=== PATIENT | male | born 1960 | race Caucasian/White ===

== ENCOUNTER 2016-08-14 07:19 | Emergency (ER) | payer MEDICAID ==
[~2016-08-14] VITALS: Ht 170.2 cm; Wt 64.0 kg
[~2016-08-14 07:19] MED LIST: LORTAB5 OR; NAPROSYN375 MG PO; NO MEDICATIONS; NORVASC5 MG OR; PENICILLN VK500 M1 OR; ULTRAM50 M1 PO; VASOTEC5 MG PO
[2016-08-14] MEDS ORDERED: NAPROSYN500 MG PO (08:37)
[2016-08-14] MEDS ORDERED: FLEXERIL PO (08:37)
[2016-08-14 08:44] VITALS: BP 125/96
== END 2016-08-14 09:08 | disposition home or self-care (01) | DRG 563 ==
LOC: ED 07:19
DX: S39.012A Strain of muscle, fascia and tendon of lower back, initial encounter (principal); X50.0XXA Overexertion from strenuous movement or load, initial encounter; Y93.H9 Activity, other involving exterior property and land maintenance, building and construction; Y92.007 Garden or yard of unspecified non-institutional (private) residence as the place of occurrence of the external cause

== ENCOUNTER 2018-08-07 08:09 | Emergency (ER) | payer SELFPAY ==
[~2018-08-07] VITALS: Ht 170.2 cm; Wt 50.0 kg
[~2018-08-07 08:09] MED LIST changes: +FLEXERIL PO; +NAPROSYN500 MG PO
[2018-08-07] MEDS ORDERED: MOTRIN400 MG PO (09:21)
[2018-08-07] MEDS ORDERED: VOLTAREN1%GEL TOP (09:21)
[2018-08-07 10:28] VITALS: BP 113/65
== END 2018-08-07 10:28 | disposition home or self-care (01) | DRG 563 ==
LOC: ED 08:09
DX: S66.911A Strain of unspecified muscle, fascia and tendon at wrist and hand level, right hand, initial encounter (principal); I10 Essential (primary) hypertension; F17.200 Nicotine dependence, unspecified, uncomplicated; X58.XXXA Exposure to other specified factors, initial encounter

== ENCOUNTER 2021-02-07 12:01 | Observation (INO) | payer SELFPAY ==
[~2021-02-07] VITALS: Ht 170.2 cm; Wt 54.0 kg
[~2021-02-07 12:01] MED LIST changes: +MOTRIN400 MG PO; +VOLTAREN1%GEL TOP
--- NOTE | 2021-02-07 12:01 | NUR ---
PATIENT TO ROOM 11 VIA WHEELCHAIR BEDSIDE TRIAGE COMPLETED
--- NOTE | 2021-02-07 12:15 | NUR ---
STROKE ALERT CALLED, TO CT SCAN VIA STRETCHER.
[2021-02-07 12:32] LABS: GFR > 60 ML/MIN (>=60 (CALC)); GFR FOR AFR.AMER. > 60 ML/MIN (>=60 (CALC))
[2021-02-07 12:34] LABS: HEMOGLOBIN 13.8 g/dl (14.0-18.0); IMMATURE GRANULOCYTES 0.4 % (0.0-5.0); MEAN CELL VOLUME 93.1 fL CALC (80.0-100.0); MEAN CORPUSCULAR HGB 32.7 pG CALC (26.0-32.0); MEAN CORPUSCULAR HGB CONC 35.1 g/dL CAL (32.0-36.0); NEUT# 2.19 thou/uL (1.82-7.42); RED BLOOD COUNT 4.22 mill/uL (4.70-6.10); RED CELL DISTRI WIDTH 12.3 % (11.5-15.5)
[2021-02-07 12:37] LABS: HEMATOCRIT 39.3 % (39.0-50.0)
[2021-02-07 12:45] LABS: ALBUMIN 4.2 g/dL (3.2-5.0); ALKALINE PHOSPHATASE 72 u/l (38-126); ANION GAP 14 (6-22 (CALC)); BILIRUBIN, TOTAL 0.6 mg/dL (0.0-1.4); BUN 9 mg/dL (9-20); BUN/CREATININE RATIO 15 (12-20 (CALC)); CARBON DIOXIDE 20 mmol/l (22-30); CHLORIDE 100 mmol/l (95-108); CREATININE 0.6 mg/dL (0.7-1.3); GFR > 60 ML/MIN (>=60 (CALC)); GFR FOR AFR.AMER. > 60 ML/MIN (>=60 (CALC)); LIPASE 202 u/l (23-300); MAGNESIUM 1.5 mg/dL (1.6-2.3); SGOT/AST 39 u/l (17-59); SODIUM 130 mmol/l (137-146)
[2021-02-07 12:46] LABS: ACT PARTIAL THROMBO TIME 25.3 SECONDS (20.0-32.5); PROTHROMBIN TIME 10.4 SECONDS (9.0-12.5)
--- NOTE | 2021-02-07 13:53 | NUR ---
DR NELSON AT BEDSIDE TO DISCUSS RESULTS AND POC.
--- NOTE | 2021-02-07 14:42 | NUR ---
PT RETURNED FROM RADIOLOGY VIA WHEELCHAIR. ASSISTED TO STRETCHER WITH STAND BY ASSIST.
--- NOTE | 2021-02-07 14:55 | NUR ---
OT AT BEDSIDE
--- NOTE | 2021-02-07 15:07 | NUR ---
REPORT CALLED TO AYSHA DAILEY
--- NOTE | 2021-02-07 15:48 | NUR ---
TO MED SURG VIA STRETCHER, TELE MONITOR IN PLACE.
--- NOTE | 2021-02-07 15:55 | NUR ---
PT ARRIVED TO FLOOR VIA NORBERTO DAILEY. PT ORIENTED TO ROOM. ASSESSMENT PERFORMED, NO COMPLAINTS AT THIS TIME. WILL CONTINUE TO MONITOR.
[2021-02-07 16:13] VITALS: BP 141/85
[2021-02-07] MEDS ORDERED: ZESTRIL10 M1 PO (16:23)
[2021-02-07] MEDS ORDERED: LOPID600 MG PO (16:23)
[2021-02-07 19:00] VITALS: BP 103/61
--- NOTE | 2021-02-07 20:00 | NUR ---
PATIENT RESTING IN BED AT THIS TIME WATCHING TV. AWAKE ALERT AND ORIENTEDX3. PATIENT WITH NO COMPLAINTS A THIS TIME. DENIES ANY NUMBNESS OR TINGLING AT THIS TIME. NEURO CHECK IS WNL-HAND GRASPS ARE EQUAL. ZACK IS WNL. TELE MONITOR IN PLACE-LAST READING WAS SR-68. SALINE LOCK TO LEFT FOREARM IN PLACE WITH GOOD BLOOD RETURN. IVF NS HUNG ORDERED AND INFUSING AT 100CC/HR. LUNGS ARE CLEAR. ABD IS SOFT WITH ACTIVE BS. NO PERIPHERAL EDEMA NOTED. PULSES ARE PALPABLE. DENIES ANY DIFFICULTY WITH URINATION. SAFETY PRECAUTIONS REINFORCED. CALL LIGHT IN REACH. WILL CONT TO MONITOR.
[2021-02-08] VITALS: BP 120/68
--- NOTE | 2021-02-08 01:26 | NUR ---
PATIENT RESTING IN BED AT THIS TIME WITH EYES CLOSED. RESPS ARE EVEN AND UNLABORED. TELE MONITOR IN PLACE-LAST READING WAS SR-62. IVF NS PATENT AND INFUSING VIA LEFT FOREARM SITE AT 100CC/HR. CALL LIGHT IN REACH. WILL CONT TO MONITOR.
[2021-02-08 04:00] VITALS: BP 118/77
--- NOTE | 2021-02-08 04:32 | NUR ---
PATIENT RESTING IN BED AT THIS TIME WITH EYES CLOSED. RESPS ARE EVEN AND UNLABORED. IVF NS PATENT AND INFUSING VIA LEFT FOREARM SITE. TELE MONITOR IN PLACE. CALL LIGHT IN REACH. WILL CONT TO MONITOR.
[2021-02-08 05:58] LABS: HEMATOCRIT 39.4 % (39.0-50.0); HEMOGLOBIN 13.4 g/dl (14.0-18.0); MEAN CELL VOLUME 95.6 fL CALC (80.0-100.0); MEAN CORPUSCULAR HGB 32.5 pG CALC (26.0-32.0); RED BLOOD COUNT 4.12 mill/uL (4.70-6.10); RED CELL DISTRI WIDTH 12.5 % (11.5-15.5)
[2021-02-08 06:22] LABS: ANION GAP 7 (6-22 (CALC)); BUN 8 mg/dL (9-20); BUN/CREATININE RATIO 13 (12-20 (CALC)); CALCULATED LDLCHOLESTEROL 58 mg/dL (62-129 (CALC)); CARBON DIOXIDE 23 mmol/l (22-30); CHLORIDE 107 mmol/l (95-108); CHOLESTEROL HDL RATIO 3.8 (<4.4 (CALC)); CREATININE 0.6 mg/dL (0.7-1.3); GFR > 60 ML/MIN (>=60 (CALC)); GFR FOR AFR.AMER. > 60 ML/MIN (>=60 (CALC)); HDL CHOLESTEROL 37 mg/dL (>=40); MAGNESIUM 1.7 mg/dL (1.6-2.3); POTASSIUM 4.2 mmol/l (3.5-5.1); SODIUM 133 mmol/l (137-146); TOTAL CHOLESTEROL 139 mg/dl (0-199); TOTAL TRIGLYCERIDES 218 mg/dl (30-149); VLDL CHOLESTROL 44 mg/dl (8-62 (CALC))
[2021-02-08 07:45] VITALS: BP 153/91
--- NOTE | 2021-02-08 07:45 | NUR ---
BEDSIDE REPORT RECEIVED AT CHANGE OF SHIFT. PT LYING IN BED WATCHING. NO COMPLAINTS. SATED HE FELLS MUCH BETTER AND WOULD LIKE TO GO HOME. ASSESSMENT PERFORMED. WILL CONTINUE TO MONITOR.
[2021-02-08 10:30] VITALS: BP 124/83
--- NOTE | 2021-02-08 11:21 | NUR ---
Patient participated with PT intervention today. Patient did seated AROM exercises today doing hip flexion, hip adduction, hip abduction, hamstring curls, knee extension, and ankle pumps for 10 reps x 2 sets with occasional verbal and tactile cuing to help decrease trick movements and fall risks. Patient also did 30 second sit to stand test and scored an 11 out of the possible 12 reps, indicative of improving muscle strength on B LE. Patient also walked around the room for 10 feet x 2 reps with SBA x 1.
[2021-02-08] MEDS ORDERED: ASPIRIN 81 LOW81 MG PO (11:40)
--- NOTE | 2021-02-08 14:21 | NUR ---
Discharge instructions given. Patient verbalizes understanding of same. Discharged in stable condition via Wheelchair to Home with family. All belongings sent with pt.
== END 2021-02-08 14:21 | disposition home or self-care (01) | DRG 69 ==
LOC: ED 12:01 → ED-I 12:41 → ED 12:41 → ED-I 13:35 → ED 14:04 → MS2 14:05
PROVIDERS: ADMIT Hospitalist; ATTEND Hospitalist
DX: G45.9 Transient cerebral ischemic attack, unspecified (principal); E87.1 Hypo-osmolality and hyponatremia; E83.42 Hypomagnesemia; I10 Essential (primary) hypertension; E78.5 Hyperlipidemia, unspecified; I25.10 Atherosclerotic heart disease of native coronary artery without angina pectoris; I25.2 Old myocardial infarction; F17.210 Nicotine dependence, cigarettes, uncomplicated; Z20.822 Contact with and (suspected) exposure to COVID-19
CPT/HCPCS: G0378; J1650

== ENCOUNTER 2022-07-10 12:32 | Observation (INO) | payer SELFPAY ==
[~2022-07-10] VITALS: Ht 170.2 cm; Wt 54.2 kg
[~2022-07-10 12:32] MED LIST changes: +ASPIRIN 81 LOW81 MG PO; +LISINOPRIL20 M1 PO; +LOPID600 MG PO
[2022-07-10 12:46] VITALS: BP 138/87
[2022-07-10 13:15] VITALS: BP 125/78
[2022-07-10 13:28] LABS: BASO% 0.7 % (0-3); EOS% 0.7 % (0-8); HEMATOCRIT 39.5 % (39.0-50.0); HEMOGLOBIN 13.4 g/dl (14.0-18.0); IMMATURE GRANULOCYTES 0.2 % (0.0-5.0); LYMPH% 36.1 % (15-41); MEAN CELL VOLUME 93.8 fL CALC (80.0-100.0); MEAN CORPUSCULAR HGB 31.8 pG CALC (26.0-32.0); MEAN CORPUSCULAR HGB CONC 33.9 g/dL CAL (32.0-36.0); MONO% 7.2 % (2-13); NEUT# 3.2 thou/uL (1.82-7.42); NEUT% 55.1 % (42-76); RED BLOOD COUNT 4.21 mill/uL (4.70-6.10)
[2022-07-10 13:30] VITALS: BP 120/76
[2022-07-10 13:50] LABS: ALBUMIN 3.9 g/dL (3.2-5.0); ALKALINE PHOSPHATASE 73 u/l (38-126); ANION GAP 15 (6-22 (CALC)); BILIRUBIN, TOTAL 0.6 mg/dL (0.2-1.3); BUN 10 mg/dL (8-23); BUN/CREATININE RATIO 14 (12-20 (CALC)); CARBON DIOXIDE 20 mmol/l (22-30); CHLORIDE 99 mmol/l (95-108); CREATININE 0.7 mg/dL (0.7-1.3); GFR FOR AFR.AMER. > 60 ML/MIN (>=60 (CALC)); GFR OTHER RACES > 60 ML/MIN (>=60 (CALC)); POTASSIUM 4.1 mmol/l (3.5-5.1); SGOT/AST 47 u/l (19-48); SODIUM 130 mmol/l (137-146); TOTAL PROTEIN 7.2 g/dL (6.3-8.2)
[2022-07-10 16:28] VITALS: BP 157/89
[2022-07-10 18:38] VITALS: BP 100/53
[2022-07-11 00:13] VITALS: BP 131/78
[2022-07-11 04:28] VITALS: BP 110/68
[2022-07-11 04:28] LABS: CHOLESTEROL HDL RATIO 2.9 (<4.4 (CALC)); MAGNESIUM 1.8 mg/dL (1.6-2.3)
[2022-07-11 06:36] VITALS: BP 129/77
[2022-07-11 11:00] VITALS: BP 113/70
[2022-07-11 15:28] VITALS: BP 109/62
[2022-07-11 19:51] VITALS: BP 90/50
[2022-07-12 00:14] VITALS: BP 113/65
[2022-07-12 04:39] VITALS: BP 94/59
[2022-07-12 05:47] LABS: BASO% 0.6 % (0-3); EOS% 2.5 % (0-8); HEMATOCRIT 43.4 % (39.0-50.0); HEMOGLOBIN 14.3 g/dl (14.0-18.0); IMMATURE GRANULOCYTES 0.1 % (0.0-5.0); LYMPH% 27.9 % (15-41); MEAN CORPUSCULAR HGB 31.6 pG CALC (26.0-32.0); MEAN CORPUSCULAR HGB CONC 32.9 g/dL CAL (32.0-36.0); MONO% 8.2 % (2-13); NEUT# 4.12 thou/uL (1.82-7.42); NEUT% 60.7 % (42-76); RED BLOOD COUNT 4.52 mill/uL (4.70-6.10)
[2022-07-12 06:05] LABS: ALBUMIN 3.7 g/dL (3.2-5.0); ALKALINE PHOSPHATASE 79 u/l (38-126); ANION GAP 10 (6-22 (CALC)); BILIRUBIN, TOTAL 0.5 mg/dL (0.2-1.3); BUN 12 mg/dL (8-23); BUN/CREATININE RATIO 17 (12-20 (CALC)); CARBON DIOXIDE 24 mmol/l (22-30); CHLORIDE 103 mmol/l (95-108); CREATININE 0.7 mg/dL (0.7-1.3); GFR FOR AFR.AMER. > 60 ML/MIN (>=60 (CALC)); GFR OTHER RACES > 60 ML/MIN (>=60 (CALC)); POTASSIUM 3.9 mmol/l (3.5-5.1); SGOT/AST 35 u/l (19-48); SODIUM 133 mmol/l (137-146); TOTAL PROTEIN 6.9 g/dL (6.3-8.2)
[2022-07-12 06:47] VITALS: BP 90/55
[2022-07-12 08:41] VITALS: BP 112/65
[2022-07-12 10:14] VITALS: BP 97/63
== END 2022-07-12 11:16 | disposition home or self-care (01) | DRG 313 ==
LOC: ED 12:32 → ED-I 15:17 → ED 15:30 → MS2 15:31
PROVIDERS: Family Medicine; Nurse Practitioner Family; ADMIT Internal Medicine; ATTEND Internal Medicine
DX: R07.9 Chest pain, unspecified (principal); M79.89 Other specified soft tissue disorders; M71.21 Synovial cyst of popliteal space [Baker], right knee; I70.201 Unspecified atherosclerosis of native arteries of extremities, right leg; I10 Essential (primary) hypertension; F17.210 Nicotine dependence, cigarettes, uncomplicated; I25.2 Old myocardial infarction; Z86.73 Personal history of transient ischemic attack (TIA), and cerebral infarction without residual deficits
CPT/HCPCS: G0378; J1650; Q9967